=== PATIENT | female | born 1940 | race Caucasian/White ===

== ENCOUNTER 2024-09-29 10:25 | Emergency (ER) | payer MEDICARE ==
[2024-09-29] MEDS: Acetaminophen/HYDROcodone 325-5 MG Tab PO ONE (12:01)
[2024-09-29 13:04] LABS: ALBUMIN 3.15 g/dL (3.40-5.00); ANION GAP 15.1 mmol/L (5-15); BILIRUBIN TOTAL 0.3 mg/dL (0.2-1.0); CALCIUM 9.1 mg/dL (8.7-10.3); CARBON DIOXIDE,CO2 22.9 mmol/L (21.0-32.0); CREATININE 1.28 mg/dL (0.51-1.17); EST CRCL DRUG DOSING (CG) 28.51 mL/min; PROTEIN TOTAL,TP 6.4 g/dL (6.4-8.2)
[2024-09-29 17:38] VITALS: BP 131/62; PULSE 73
== END 2024-09-29 15:11 | disposition home or self-care (01) ==
LOC: KA.ED 10:25
DX: S92.331A Displaced fracture of third metatarsal bone, right foot, initial encounter for closed fracture (principal); M54.16 Radiculopathy, lumbar region; Z79.84 Long term (current) use of oral hypoglycemic drugs; Z79.899 Other long term (current) drug therapy; X58.XXXA Exposure to other specified factors, initial encounter
CPT/HCPCS: 36415; 72100; 73630-RT; 73700-RT; 80053; 99284; A9270-GY